=== PATIENT | male | born 1975 | race Caucasian/White ===

== ENCOUNTER 2023-11-01 17:17 | Emergency (ER) | payer MEDICAID ==
[2023-11-01] MEDS ORDERED: cloNIDine 0.1 MG Tab PO ONE (17:50)
== END 2023-11-01 18:05 | disposition home or self-care (01) ==
LOC: MW.ED 17:17
DX: I10 Essential (primary) hypertension (principal); Z02.89 Encounter for other administrative examinations; F17.210 Nicotine dependence, cigarettes, uncomplicated
CPT/HCPCS: 99282; A9270; 99283